=== PATIENT | female | born 1975 | race African-American/Black ===

== ENCOUNTER 2017-10-25 21:45 | Emergency (ER) | payer MEDICAID, OTHER ==
[~2017-10-25] VITALS: Ht 160 cm; Wt 118.8 kg
[2017-10-25 22:10] VITALS: BP 125/74
--- NOTE | 2017-10-25 22:10 | NUR ---
pt to er bed 12
--- NOTE | 2017-10-25 22:27 | NUR ---
PT BIB SELF FOR RT KNEE PAIN STARTING YESTERDAY S/P WALKING AROUND AT FOOTBALL GAME. PT DENIES FALL OR TRAUMA TO AREA. NO REDNESS OR SWELLING, +CMS. PT ABLE TO AMBULATE. NO PMH
[2017-10-25] MEDS ORDERED: IBUPROFEN 800 MG TAB PO ONE (22:30)
--- NOTE | 2017-10-25 23:35 | NUR ---
EMT APPLIED RT KNEE IMMOBILIZER APPLIED, +PULSES AFTER APPLICATION.
[2017-10-25 23:47] VITALS: BP 127/74
== END 2017-10-25 23:47 | disposition home or self-care (01) ==
LOC: MED 21:45
DX: S83.91XA Sprain of unspecified site of right knee, initial encounter (principal); X58.XXXA Exposure to other specified factors, initial encounter; Y93.89 Activity, other specified; Y92.89 Other specified places as the place of occurrence of the external cause; Y99.8 Other external cause status
CPT/HCPCS: 29505; 73562; 99284; Q0092